=== PATIENT | male | born 1990 | race American Indian/Alaskan Native ===

== ENCOUNTER 2018-09-15 10:22 | Emergency (ER) | payer BC ==
[2018-09-15 10:30] VITALS: BP 132/82
[2018-09-15] MEDS ORDERED: IBUPROFEN PO ONE (11:27)
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
== END 2018-09-15 13:59 | disposition home or self-care (01) ==
LOC: ED 10:22
DX: S13.4XXA Sprain of ligaments of cervical spine, initial encounter (principal); R51 Headache; J01.10 Acute frontal sinusitis, unspecified; F17.200 Nicotine dependence, unspecified, uncomplicated; F12.10 Cannabis abuse, uncomplicated; V89.2XXA Person injured in unspecified motor-vehicle accident, traffic, initial encounter; Y93.89 Activity, other specified; Y92.410 Unspecified street and highway as the place of occurrence of the external cause; Y99.8 Other external cause status
CPT/HCPCS: 70450; 72125; 99283

== ENCOUNTER 2019-06-11 18:43 | Emergency (ER) | payer SELFPAY ==
[2019-06-11 18:52] VITALS: BP 116/72
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
== END 2019-06-11 20:43 | disposition home or self-care (01) ==
LOC: ED 18:43
DX: M25.512 Pain in left shoulder (principal); M54.2 Cervicalgia; Z79.899 Other long term (current) drug therapy; V89.2XXA Person injured in unspecified motor-vehicle accident, traffic, initial encounter; Y93.89 Activity, other specified; Y92.410 Unspecified street and highway as the place of occurrence of the external cause; Y99.8 Other external cause status
CPT/HCPCS: 99282